=== PATIENT | female | born 1990 | race Two or more races ===

== ENCOUNTER 2016-12-04 18:29 | Emergency (ER) | payer MEDICAID ==
[~2016-12-04] VITALS: Ht 160 cm; Wt 59.0 kg
[~2016-12-04 18:29] MED LIST: IBUP-1222 PO
[2016-12-04 19:16] LABS: BLOOD UREA NITROGEN 16 mg/dL (7-18)
[2016-12-04 19:24] LABS: ASPARTATE AMINO TRANSFERASE 19 U/L (15-37)
[2016-12-04 20:49] VITALS: BP 118/76
== END 2016-12-04 20:51 | disposition home or self-care (01) ==
LOC: ED 20:30
DX: K59.00 Constipation, unspecified (principal); N39.0 Urinary tract infection, site not specified
CPT/HCPCS: 36415; 74020; 80053; 81001; 83690; 84703; 85025; 87086; 99285

== ENCOUNTER 2017-03-02 10:01 | Emergency (ER) | payer MEDICAID ==
[~2017-03-02] VITALS: Ht 160 cm; Wt 63.6 kg
[2017-03-02 10:03] VITALS: BP 119/82
== END 2017-03-02 10:37 | disposition home or self-care (01) ==
LOC: ED 10:35
DX: J03.00 Acute streptococcal tonsillitis, unspecified (principal); H92.01 Otalgia, right ear
CPT/HCPCS: 99283

== ENCOUNTER 2018-06-11 18:59 | Emergency (ER) | payer MEDICAID ==
[~2018-06-11] VITALS: Ht 160 cm; Wt 64.7 kg
[2018-06-11 19:25] LABS: BASOPHILS # (AUTO) 0.05 x10^3/uL (0-0.1); BASOPHILS % (AUTO) 1 % (0-1); EOSINOPHILS # (AUTO) 0.07 x10^3/uL (0-0.4); EOSINOPHILS % (AUTO) 1 % (1-7); LYMPHOCYTES # (AUTO) 2.38 x10^3/uL (1-3.4); LYMPHOCYTES % (AUTO) 30 % (22-44); MD NO; MEAN CORPUSCULAR HEMOGLOBIN 30.9 pg (27.0-34.8); MEAN CORPUSCULAR HGB CONC 34.1 g/dL (32.4-35.8); MEAN CORPUSCULAR VOLUME 90.4 fL (80-100); MEAN PLATELET VOLUME 8.1 fL (7.4-10.4); MONOCYTES # (AUTO) 0.64 x10^3/uL (0.2-0.8); MONOCYTES % (AUTO) 8 % (2-9); NEUTROPHILS # (AUTO) 4.93 x10^3/uL (1.8-6.8); NEUTROPHILS % (AUTO) 61 % (42-75); PLATELET COUNT 333 x10^3/uL (130-400); RED BLOOD COUNT 4.49 x10^6/uL (3.82-5.3); RED CELL DISTRIBUTION WIDTH 14.4 % (9.6-15.2)
--- NOTE | 2018-06-11 19:25 | NUR ---
PT TO ROOM FROM LOBBY AT THIS TIME.
--- NOTE | 2018-06-11 19:26 | NUR ---
PT AMBULATORY W/ STEADY GAIT. URINE SPECIMEN IN CONTAINER ON COUNTER.
--- NOTE | 2018-06-11 19:33 | NUR ---
PT A&OX4 RESP EVEN & UNLABORED, SPEECH CLEAR, SKIN WNL. C/O RUQ PAIN THAT RADIATED TO RT SIDE AND RLQ TODAY. + NAUSEA "A LOT". DENIES VOMITING, DIARRHEA, CONSTIPATION. LMP: 04/25/19. HOME PG TESTS: POSITIVE. NO MEDS TAKEN FOR SX. LAST ORAL INTAKE: 1529 TODAY.
[2018-06-11 19:35] LABS: ALANINE AMINOTRANSFERASE 28 U/L (12-78); ALBUMIN 3.7 g/dL (3.4-5.0); ANION GAP 8 mmol/L (5-15); CALCIUM 9.6 mg/dL (8.5-10.1); CHLORIDE 108 mmol/L (98-107); CREATININE 0.59 mg/dL (0.55-1.02)
--- NOTE | 2018-06-11 19:44 | NUR ---
URINE SPECIMEN TUBED TO LAB
[2018-06-11 19:52] LABS: ALKALINE PHOSPHATASE 72 U/L (45-117); BILIRUBIN,TOTAL 0.1 mg/dL (0.2-1.0); TOTAL PROTEIN 7.7 g/dL (6.4-8.2)
[2018-06-11 20:08] LABS: MICROSCOPIC AUTO
[2018-06-11 20:09] LABS: CULTURE INDICATED? YES
--- NOTE | 2018-06-11 20:42 | NUR ---
PT RESTING ON GURNEY W/ SON. SPOUSE & YOUNGEST SON IN ROOM. PT AWAITING U/S.
[2018-06-11 22:14] VITALS: BP 106/55
== END 2018-06-11 22:16 | disposition home or self-care (01) ==
LOC: ED 22:10
DX: O23.11 Infections of bladder in pregnancy, first trimester (principal); K29.00 Acute gastritis without bleeding; Z3A.01 Less than 8 weeks gestation of pregnancy
CPT/HCPCS: 36415; 76700; 76801; 80053; 81001; 83690; 84702; 84703; 85025; 87086; 99284

== ENCOUNTER 2019-03-29 10:16 | Emergency (ER) | payer MEDICAID ==
[~2019-03-29] VITALS: Ht 160 cm; Wt 65.8 kg
[~2019-03-29 10:16] MED LIST changes: +IBUP200T49 PO
[2019-03-29 10:22] VITALS: BP 112/66
[2019-03-29] MEDS ORDERED: LIDOCAINE-MPF 1%, 5ML ONE ×2 (10:49→11:19)
[2019-03-29] MEDS ORDERED: LIDOCAINE-MPF 1%, 5ML INFIL ONE (11:00)
--- NOTE | 2019-03-29 11:09 | NUR ---
PA AT BEDSIDE FOR PARTIAL TOE NAIL REMOVAL
[2019-03-29] MEDS ORDERED: NEOSPORIN OINT. PKT 1 PACKET ONE (11:34)
== END 2019-03-29 12:00 | disposition left against medical advice (07) ==
LOC: ED 10:45
DX: L60.0 Ingrowing nail (principal)
CPT/HCPCS: 11730; 99283

== ENCOUNTER 2019-04-14 12:45 | Emergency (ER) ==
[~2019-04-14] VITALS: Ht 160 cm; Wt 66.3 kg
[2019-04-14 13:13] LABS: BASOPHILS # (AUTO) 0.05 x10^3/uL (0-0.1); BASOPHILS % (AUTO) 1 % (0-1); EOSINOPHILS # (AUTO) 0.17 x10^3/uL (0-0.4); EOSINOPHILS % (AUTO) 2 % (1-7); LYMPHOCYTES # (AUTO) 2.38 x10^3/uL (1-3.4); LYMPHOCYTES % (AUTO) 24 % (22-44); MD NO; MEAN CORPUSCULAR HEMOGLOBIN 30.9 pg (27.0-34.8); MEAN CORPUSCULAR VOLUME 93.6 fL (80-100); MEAN PLATELET VOLUME 7.8 fL (7.4-10.4); MONOCYTES # (AUTO) 0.83 x10^3/uL (0.2-0.8); MONOCYTES % (AUTO) 8 % (2-9); NEUTROPHILS # (AUTO) 6.53 x10^3/uL (1.8-6.8); NEUTROPHILS % (AUTO) 66 % (42-75); PLATELET COUNT 401 x10^3/uL (130-400); RED BLOOD COUNT 4.82 x10^6/uL (3.82-5.3); RED CELL DISTRIBUTION WIDTH 13.6 % (9.6-15.2)
[2019-04-14 13:28] LABS: ANION GAP 6 mmol/L (5-15); CALCIUM 9.5 mg/dL (8.5-10.1); CHLORIDE 103 mmol/L (98-107); CREATININE 0.78 mg/dL (0.55-1.02)
[2019-04-14 13:29] LABS: RAPID INFLUENZA A Negative (Negative); RAPID INFLUENZA B Negative (Negative)
--- NOTE | 2019-04-14 13:31 | NUR ---
certified medical coder: pt provided UA, however sample size not adequate to send to lab
--- NOTE | 2019-04-14 13:39 | NUR ---
PT TO ROOM FROM LOBBY.
--- NOTE | 2019-04-14 14:02 | NUR ---
PT UPRIGHT ON GURNEY AWAKE & COMFORTABLE, RESPONDS APPROP TO STAFF, NAD, COMFORT MEASURES PROVIDED, CALL LIGHT WITHIN REACH.
[2019-04-14 14:29] LABS: MICROSCOPIC INDICATED
[2019-04-14 14:30] LABS: CULTURE INDICATED? YES
[2019-04-14 15:01] VITALS: BP 110/51
--- NOTE | 2019-04-14 15:01 | NUR ---
PT REMAINS UPRIGHT ON GURNEY AWAKE & COMFORTABLE, RESPONDS APPROP TO STAFF, NAD, COMFORT MEASURES PROVIDED, CALL LIGHT WITHIN REACH.
== END 2019-04-14 16:05 | disposition home or self-care (01) ==
LOC: ED 16:01
DX: N30.00 Acute cystitis without hematuria (principal)
CPT/HCPCS: 36415; 76830; 80048; 81001; 84703; 85025; 87086; 87400; 99284